=== PATIENT | male | born 1990 | race Two or more races ===

== ENCOUNTER 2017-05-22 06:54 | Emergency (ER) | payer SELFPAY ==
[~2017-05-22] VITALS: Ht 167.6 cm; Wt 59.0 kg
[2017-05-22] MEDS ORDERED: fentaNYL PF VIAL 100 MCG/2 ML VIAL IV PRN (07:15)
[2017-05-22] MEDS ORDERED: IV NORMAL SALINE 500ML BAG 500 ML IV ONE (07:15)
--- NOTE | 2017-05-22 07:17 | PHYS DOC ---
Adult General Chief Complaint Chief Complaint: HIP PAIN HPI HPI Patient is a 26 year old male who presents with right-sided rib and flank pain after falling down the stairs. Patient states this morning he slipped on the floor and fell down 13-15 steps. Denies head trauma or loss of consciousness. Reports impact to his right side. He complains of rib pain worse with deep breathing, and flank/lower back pain on the right side. Denies shortness of breath, abdominal pain, extremity pain, extremity numbness or weakness. Previously healthy. Does not have a PCP. Review of Systems Review of Systems Constitutional: Denies fever or chills Eyes: Denies change in visual acuity HENT: Denies nasal congestion or sore throat Respiratory: Denies cough or shortness of breath Cardiovascular: Denies chest pain or edema GI: Denies abdominal pain, nausea, vomiting, or diarrhea : Denies dysuria or hematuria Musculoskeletal: Reports back pain and rib pain, denies joint pain Integument: Denies rash or skin lesions Neurologic: Denies headache, focal weakness or sensory changes Current Medications Current Medications Current Medications Medications (Trade) Dose Ordered Sig/Rio Start Time Stop Time Status Last Admin Dose Admin Fentanyl Citrate (Fentanyl 2ml Vial) 50 mcg PRN Q15MIN PRN 05/22/17 07:15 05/22/17 09:08 DC 05/22/17 07:38 50 MCG Iohexol (Omnipaque 300 Mg/ml) 75 ml 1X ONCE 05/22/17 07:30 05/22/17 07:34 DC 05/22/17 08:03 75 ML Ondansetron HCl (Zofran) 4 mg 1X ONCE 05/22/17 07:45 05/22/17 07:46 DC 05/22/17 07:41 4 MG Sodium Chloride 500 ml @ 0 mls/hr 1X ONCE 05/22/17 07:15 05/22/17 07:24 DC 05/22/17 07:38 500 MLS/HR Allergies Allergies Allergies Coded Allergies Type Severity Reaction Last Updated Verified No Known Drug Allergies 05/22/17 No Physical Exam Physical Exam Constitutional: Well developed, well nourished, no acute distress, non-toxic appearance. HENT: Normocephalic, atraumatic, bilateral external ears normal, oropharynx moist, nose normal. Eyes: PERRLA, EOMI, conjunctiva normal, no discharge. Neck: supple, no stridor. No midline C-spine tenderness Cardiovascular: RRR, no murmurs, no edema. Lungs & Thorax: LCTAB, no wheezing, no respiratory distress. Tender with palpation posteriorly over ribs 8 through 12 without ecchymosis, crepitus, deformity Abdomen: soft, nontender, nondistended. Skin: Warm, dry, no erythema, no rash. Back: right CVA & lower back tenderness without ecchymosis, no spinal tenderness or step offs. Extremities: No tenderness, no edema. specifically no right hip tenderness, normal ROM, distally NV intact. Neurologic: Alert and oriented X 3, no focal deficits noted. symmetric strength /sensation to LE. Psychologic: Affect normal, judgement normal, mood normal. Current Patient Data Vital Signs Vital Signs Date Time Temp Pulse Resp B/P (MAP) Pulse Ox O2 Delivery O2 Flow Rate FiO2 05/22/17 09:00 80 16 127/70 (89) 98 Room Air 05/22/17 06:54 98.2 98.2 Lab Values Laboratory Tests Test 05/22/17 07:26 White Blood Count 5.3 x10^3/uL (4.0-11.0) Red Blood Count 4.48 x10^6/uL (4.30-5.70) Hemoglobin 13.3 g/dL (13.0-17.5) Hematocrit 39.7 % (39.0-53.0) Mean Corpuscular Volume 89 fL (79-100) Mean Corpuscular Hemoglobin 30 pg (25-35) Mean Corpuscular Hemoglobin Concent 34 g/dL (31-37) Red Cell Distribution Width 12.8 % (11.5-14.5) Platelet Count 206 x10^3/uL (140-400) Neutrophils (%) (Auto) 63 % (31-73) Lymphocytes (%) (Auto) 28 % (24-48) Monocytes (%) (Auto) 7 % (0-9) Eosinophils (%) (Auto) 1 % (0-3) Basophils (%) (Auto) 1 % (0-3) Neutrophils # (Auto) 3.3 x10^3uL (1.8-7.7) Lymphocytes # (Auto) 1.5 x10^3/uL (1.0-4.8) Monocytes # (Auto) 0.4 x10^3/uL (0.0-1.1) Eosinophils # (Auto) 0.0 x10^3/uL (0.0-0.7) Basophils # (Auto) 0.0 x10^3/uL (0.0-0.2) Sodium Level 143 mmol/L (136-145) Potassium Level 3.6 mmol/L (3.5-5.1) Chloride Level 104 mmol/L (98-107) Carbon Dioxide Level 29 mmol/L (21-32) Anion Gap 10 (6-14) Blood Urea Nitrogen 17 mg/dL (8-26) Creatinine 0.7 mg/dL (0.7-1.3) Estimated GFR (Cockcroft-Gault) 138.6 Glucose Level 107 mg/dL (70-99) H Calcium Level 8.6 mg/dL (8.5-10.1) Laboratory Tests 05/22/17 07:26 Laboratory Tests 05/22/17 07:26 EKG EKG [] Radiology/Procedures Radiology/Procedures PROCEDURE: RIBS RIGHT AND PA CHEST Right RIBS with chest, 3 views, 05/22/2017: History: Right-sided pain, nausea No rib fracture is identified. There is no evidence of underlying pneumothorax, hemothorax or pulmonary infiltrate. The heart size is normal. IMPRESSION: No significant right rib abnormality is detected. DICTATED and SIGNED BY: JAELYN ARMIJO MD DATE: 05/22/17 0817 PROCEDURE: CT ABD PELV W/ IV CONTRST ONLY CT of the abdomen and pelvis with contrast, 05/22/2017: History: Fall, right flank pain Multidetector CT imaging was performed following an IV bolus injection of iodinated contrast material. No oral contrast material was administered for this exam. The lung bases are clear. No hepatic or splenic laceration is seen. The gallbladder is unremarkable. No pancreatic abnormality is detected. The kidneys and adrenal glands are unremarkable. The bowel loops are not dilated. No free fluid or free air is evident in the abdomen or pelvis. The bone windows show no evidence of a fracture. IMPRESSION: No acute abdominal or pelvic abnormality is detected. PQRS Compliance Statement: One or more of the following individualized dose reduction techniques were utilized for this examination: 1. Automated exposure control 2. Adjustment of the mA and/or kV according to patient size 3. Use of iterative reconstruction technique DICTATED and SIGNED BY: JAELYN ARMIJO MD DATE: 05/22/17822[] Course & Med Decision Making Course & Med Decision Making Pertinent Labs and Imaging studies reviewed. (See chart for details) The patient presents with pain after a fall. Vitals stable, has lower rib & flank pain. Gave pain medication, obtained imaging & labs. No acute serious injury identified. Recommend supportive care - rest, ice, ibuprofen, flexeril, follow up as needed with primary care. Return for severe pain, shortness of breath, focal neuro deficit, any otherwise worsening condition. Discharged home in stable & improved condition. [] Dragon Disclaimer Dragon Disclaimer This electronic medical record was generated, in whole or in part, using a voice recognition dictation system. Departure Departure Impression: Primary Impression: Rib contusion Disposition: HOME, SELF-CARE Condition: STABLE Referrals: NO PCP (PCP) NICOLE LOZANO MD Patient Instructions: Contusion, [id number] Additional Instructions: You were seen in the emergency department today for pain after a fall. Tests did not show any serious injury. This is likely bruising. Please rest, apply ice packs, take ibuprofen 600 mg every 8 hours as needed for pain and Flexeril for muscle spasm. Follow-up with Dr. Lozano as needed for ongoing pain management. Return to the emergency department for severe shortness of breath, trouble moving arms or legs, any otherwise worsening condition. Scripts Ondansetron (ZOFRAN ODT) 4 Mg Tab.rapdis 1 TAB SL Q8HRS, #10 TAB Prov: FRANCOIS WU MD 05/22/17 Cyclobenzaprine Hcl (CYCLOBENZAPRINE HCL) 5 Mg Tablet 1 TAB PO TID Y for MUSCLE SPASMS, #10 TAB Prov: FRANCOIS WU MD 05/22/17 FRANCOIS WU MD May 22, 2017 07:17
[2017-05-22] MEDS ORDERED: IOHEXOL 300 MG/ML 75 ML VIAL IV ONE (07:30)
[2017-05-22] MEDS ORDERED: ONDANSETRON PF 4 MG/2 ML VIAL. ONE (07:38)
[2017-05-22 07:43] LABS: BASO % 1 % (0-3); EOS % 1 % (0-3); HEMATOCRIT 39.7 % (39.0-53.0); HEMOGLOBIN 13.3 g/dL (13.0-17.5); LYMPH # 1.5 x10^3/uL (1.0-4.8); LYMPH % 28 % (24-48); MEAN CORPUSCULAR HEMOGLOBIN 30 pg (25-35); MEAN CORPUSCULAR HGB CONC 34 g/dL (31-37); MEAN CORPUSCULAR VOLUME 89 fL (79-100); MONO % 7 % (0-9); NEUT % 63 % (31-73); PLATELET COUNT 206 x10^3/uL (140-400); RED BLOOD COUNT 4.48 x10^6/uL (4.30-5.70); RED CELL DISTRIBUTION WIDTH 12.8 % (11.5-14.5); WHITE BLOOD COUNT 5.3 x10^3/uL (4.0-11.0)
[2017-05-22] MEDS ORDERED: ONDANSETRON PF 4 MG/2 ML VIAL. IV ONE (07:45)
[2017-05-22 07:52] LABS: CALCIUM 8.6 mg/dL (8.5-10.1); CREATININE 0.7 mg/dL (0.7-1.3); GFR 138.6; POTASSIUM 3.6 mmol/L (3.5-5.1)
--- NOTE | 2017-05-22 08:22 | RAD ---
Right RIBS with chest, 3 views, 05/22/2017: History: Right-sided pain, nausea No rib fracture is identified. There is no evidence of underlying pneumothorax, hemothorax or pulmonary infiltrate. The heart size is normal. IMPRESSION: No significant right rib abnormality is detected.
--- NOTE | 2017-05-22 08:28 | RAD ---
CT of the abdomen and pelvis with contrast, 05/22/2017: History: Fall, right flank pain Multidetector CT imaging was performed following an IV bolus injection of iodinated contrast material. No oral contrast material was administered for this exam. The lung bases are clear. No hepatic or splenic laceration is seen. The gallbladder is unremarkable. No pancreatic abnormality is detected. The kidneys and adrenal glands are unremarkable. The bowel loops are not dilated. No free fluid or free air is evident in the abdomen or pelvis. The bone windows show no evidence of a fracture. IMPRESSION: No acute abdominal or pelvic abnormality is detected. PQRS Compliance Statement: One or more of the following individualized dose reduction techniques were utilized for this examination: 1. Automated exposure control 2. Adjustment of the mA and/or kV according to patient size 3. Use of iterative reconstruction technique
[2017-05-22] MEDS ORDERED: CYCL5TAB PO (08:54)
[2017-05-22 09:00] VITALS: BP 127/70
[2017-05-22] MEDS ORDERED: ONDA4TAB10 SL (09:01)
== END 2017-05-22 09:08 | disposition home or self-care (01) ==
LOC: ER 06:54
DX: S20.211A Contusion of right front wall of thorax, initial encounter (principal); M54.5 Low back pain; R10.9 Unspecified abdominal pain; W10.9XXA Fall (on) (from) unspecified stairs and steps, initial encounter; Y93.89 Activity, other specified; Y92.89 Other specified places as the place of occurrence of the external cause; Y99.8 Other external cause status
CPT/HCPCS: 36415; 71101; 74177; 80048; 85027; 96361; 96374; 96375; 99285; J2405; J3010; J7040; Q9967